=== PATIENT | female | born 1940 | race Caucasian/White ===

== ENCOUNTER 2022-10-25 12:07 | Emergency (ER) | payer MEDICARE, SELFPAY ==
[2022-10-25 12:09] VITALS: BP 104/57; PULSE 98; RESP 14; TEMP 36.6; O2SAT 97
[2022-10-25 12:11] VITALS: BMI 25.8
--- NOTE | 2022-10-25 12:58 | EX.ED.DYSGE1 ---
HPI History of Present Illness Chief Complaint: Dizziness [facility] Medical History (Updated 10/25/22 @ 15:[address] Milton Castro, ) Hyperthyroidism Sleep apnea Allergy/AdvReac Type Severity Reaction Status Date / Time No Known Allergies Allergy Verified 10/25/22 12:08 Social History Smoking Status: Never smoker EXAM Physical Exam Const Vital Signs: 10/25/22 12:09 10/25/22 12:11 10/25/22 13:05 Temperature 98 F Temperature Source Temporal Pulse Rate 98 Respiratory Rate 14 Respiratory Effort Normal Non-Labored Respiratory Pattern Normal Blood Pressure 104/57 L Blood Pressure Mean 72 Pulse Ox 97 95 Oxygen Delivery Method Room Air Room Air 10/25/22 14:08 Temperature Temperature Source Pulse Rate 87 Respiratory Rate 15 Respiratory Effort Respiratory Pattern Blood Pressure 110/74 Blood Pressure Mean 86 Pulse Ox 97 Oxygen Delivery Method Room Air MDM MDM MDM Narrative Medical decision making narrative: HISTORY OF PRESENT ILLNESS: 82-year-old female here with dizziness. She notes this occurred earlier today. Was worse with rising from a seated position. It is since resolved. Denies exacerbation with head movement. She has associated indigestion and nausea. Denies any chest pain, palpitations, shortness of breath, vomiting. Denies any abdominal pain. Denies any focal numbness or weakness. REVIEW OF SYSTEMS: Pertinent positives: Dizziness, nausea Pertinent negatives: Syncope, focal weakness PHYSICAL EXAM: Nursing triage notes reviewed, Vital signs reviewed Constitutional: please see mdm HENT: MMM Eyes: Pupils equal round and reactive to light, Extraocular muscles intact Neck: No stridor, no JVD, full neck ROM Lungs: Clear to auscultation, No wheezing or rales. No increased work of breathing, no conversational dyspnea, no accessory muscle use, no nasal flaring. No respiratory distress noted Heart: Regular rate and rhythm, No murmurs, No rubs and No gallops, 2+ distal pulses (radial, femoral, posterior tibial) in all extremities Abdomen: Soft, there is no tenderness, rigidity, rebound or guarding, no obvious peritoneal signs, no palpable pulsatile abdominal masses, no auscultated abdominal bruit : No CVAT Extremities: No edema Neuro: No alert and oriented x3, neuro exam at baseline, cranial nerves II through XII are intact. No pain with extraocular muscle movement. There is negative test of skew. Normal speech. 5 of 5 strength in upper and lower extremities in flexion extension. Intact sensation to light touch in upper and lower extremity dermatomes. No truncal or extremity ataxia. No dysdiadochokinesia. Normal gait. 2+ reflexes. No meningeal signs. Negative Babinski. NIH of 0 Skin: No rash or lesions noted MEDICAL DECISION MAKING: Chief Complaint: Dizziness, nausea External records reviewed: No recent ED visits or hospitalizations noted in the chart. Echocardiogram from 2021 shows ejection fraction 57 Factors affecting care: Reviewed clinic sync patient is a history of hypertension, polymyalgia, hypothyroidism, weakness, ROSIE. Social determinants of health: Elderly History obtained from others: The patient's Consults: none ALL IMAGES (IF OBTAINED) HAVE BEEN PERSONALLY REVIEWED AND INTERPRETED BY MYSELF. EKG with sinus bradycardia, left axis deviation, normal intervals, no STEMI MDM Narrative: [Patient was hemodynamically stable, afebrile, [id number]. No focal neurologic deficits. Low suspicion for posterior circulation CVA. I considered the following differential diagnosis: Posterior cervical CVA, anemia, arrhythmia, electrolyte normality, dehydration I obtained a broad lab and imaging work-up to further elucidate etiology the patient's complaints. Labs did not show evidence of significant anemia, electrolyte abnormalities, endorgan hypoperfusion, or myocardial ischemia. No evidence of pneumothorax, pneumonia or heart failure. Patient ambulated out significant ataxia or difficulty. Patient's etiology is unclear however there is no signs of any life or limb threatening today. I completed a structured, evidence-based clinical evaluation to screen for acute stroke and neurologic deficits in this patient. The patient has a normal detailed neurologic exam, which is highly sensitive for dangerous causes of dizziness, vertigo, or loss of balance. The evidence indicates that the patient is very low risk for an acute neurologic emergency and this is consistent with my clinical intuition. The risk of further workup or hospitalization is likely higher than the risk of the patient having a stroke or other dangerous neurologic condition. It is, therefore, in the patient?s best interest not to do additional emergent testing or to be hospitalized at this time. Shared Decision-Making I have discussed with the patient my clinical impression and the result of an evidence-based clinical evaluation to screen for stroke, as well as the risk of further testing and hospitalization. The evidence shows that the risk for stroke is less than 1%. Although the risk of stroke has not been completely eliminated, the risks of further testing or hospitalization likely exceed any potential benefit, and the patient agrees with not pursuing further emergent evaluation or hospitalization for stroke evaluation at this time. The patient and/or family, caregivers express understanding. The patient and/or family, caregivers agrees with the plan. Total critical care time today provided was at least 0 [] minutes. This excludes separately billable procedures. Critical care time (if documented) is secondary to the patient having high probability of clinically significant/life threatening deterioration in the patient's condition which required my urgent intervention. Lab Data Attestation: I reviewed the patient's lab results. Lab results narrative: CBC without leukocytosis, severe anemia, no thrombocytopenia. BMP with mild hyponatremia, no other significant electrolyte abnormalities, no anion gap to suggest endorgan hypoperfusion, no acute kidney injury Troponin is negative, no evidence of myocardial ischemia x2 Labs: Laboratory Results - last 24 hr 10/25/22 10/25/22 12:37 15:17 WBC 6.5 RBC 3.73 L Hgb 12.6 Hct 38.0 MCV 101.9 H MCH 33.8 H MCHC 33.2 RDW Std Deviation 45.0 H RDW Coeff of Kelly 12.0 Plt Count 303 MPV 9.7 Immature Gran % (Auto) 0.300 Neut % (Auto) 69.4 Lymph % (Auto) 17.0 L Walker % (Auto) 7.2 Eos % (Auto) 5.5 H Baso % (Auto) 0.6 Absolute Neuts (auto) 4.5 Absolute Lymphs (auto) 1.11 Nucleated RBC % 0 Sodium 133 L Potassium 4.2 Chloride 104 Carbon Dioxide 23.0 Anion Gap 6 BUN 17 Creatinine 0.90 Estim Creat Clear Calc 40.18 Est GFR (MDRD) Af Amer 76 Est GFR (MDRD) Non-Af 63 BUN/Creatinine Ratio 18.8 Glucose 139 H Calcium 9.0 Troponin I High Sens 6 7 Radiography Chest X-Ray - ED: Read by ED Physician Diagnostic Testing: Clinical Impression(s) from Imaging Studies Chest X-Ray 10/25/22 13:12 IMPRESSION: No acute abnormality is seen. Electronically Signed: Gabriel Merino MD at 13:35 EDT , I have personally reviewed the patient's chest x-ray. Chest x-ray is unremarkable for pulmonary edema, pneumothorax, pneumonia or focal cardiopulmonary abnormality. Discharge Plan Triage Chief Complaint: Dizziness ED Provider: Milton Castro Dx/Rx/DC Orders Clinical Impression: Dizziness Instructions: ED Dizziness, Uncertain Cause Primary Care Provider: Care Physician,No Primary Referrals: Care Physician,No Primary [Primary Care Provider] - Activity Restrictions/Additional Instructions: Thank you for trusting us with your care today! Please take Tylenol (2 pills, 650 mg), ibuprofen (2 pills, 400 mg) every 6 hours as needed for pain and fever control. Please take plenty of fluids including Pedialyte, body armor or Gatorade. Please return to the emergency department if your symptoms change or worsen. Specifically develop slurred speech, loss of vision, facial drooping, incoordination or difficulty ambulating. Please follow with your primary care physician for further outpatient evaluation and management. Disposition Disposition: Home, Self Care
--- NOTE | 2022-10-25 13:00 | EKG12_ITS ---
Test Reason : nausea Blood Pressure : / mmHG Vent. Rate : 057 BPM Atrial Rate : 057 BPM P-R Int : 164 ms QRS Dur : 104 ms QT Int : 418 ms P-R-T Axes : 067 -49 020 degrees QTc Int : 406 ms Sinus bradycardia Incomplete right bundle branch block Left anterior fascicular block Moderate voltage criteria for LVH, may be normal variant ( R in aVL , Ashkan product ) Septal infarct , age undetermined Abnormal ECG Confirmed by TESSA LEONE, DELANEY ([id number]), web content editor SONNY HARRISON ([id number]) on 10/26/2022 10:03:45 AM Referred By: Joseph Confirmed By:DELANEY ZARATE MD
[2022-10-25 13:05] VITALS: O2SAT 95
[2022-10-25] MEDS: 0.9% Normal Saline 1,000 ML 1000 ML IV (13:08)
[2022-10-25 13:09] LABS: Absolute Lymphocyte Count 1.11 X10^3/uL (0.83-4.51); Absolute Neutrophil Count 4.5 X10^3/uL (2.0-7.7); Basophil# 0.04 X10^3/uL; Basophil% 0.6 % (0-1); Eosinophil# 0.36 X10^3/uL; Eosinophils% 5.5 % (0-5); Hemoglobin 12.6 g/dL (12.0-15.0); Lymphocyte # 1.11 X10^3/ul (0.83-4.51); Mean Corp Hgb Conc 33.2 g/dL (32-36); Mean Corpuscular Hgb 33.8 pg (27.0-32.0); Mean Corpuscular Volume 101.9 fL (81-99); Mean Platelet Vol. 9.7 fl (6.2-12.0); Monocyte# 0.47 X10^3/uL; Monocyte% 7.2 % (0-10); NRBC Flagged by Analyzer 0 % (0-5); Neutrophil # 4.53 X10^3/uL (2.7-7.7); Neutrophil % 69.4 % (47-70); Platelet Count 303 K/mm3 (150-450); Red Blood Count 3.73 M/mm3 (4.2-5.4); White Blood Count 6.5 K/mm3 (4.4-11.0)
--- NOTE | 2022-10-25 13:12 | RAD_ITS ---
STUDY: X-RAY CHEST REASON FOR EXAM: Female, 82 years old. Chest pain and dizziness. TECHNIQUE: Single AP portable view of the chest. COMPARISON: None. FINDINGS: The lungs are clear and expanded. There is no demonstrated pleural abnormality. Normal size heart. Normal mediastinum and richard. Normal visualized pulmonary arteries. There is atherosclerotic calcification of the aortic arch with tortuosity. There are degenerative changes of the visualized thoracic spine. Normal visualized ribs, clavicles, and shoulders. There is no demonstrated abnormality of the visualized soft tissue structures of the upper abdomen. RAD/Chest 1 View (Portable) IMPRESSION: No acute abnormality is seen. Electronically Signed: Gabriel Merino MD at 13:35 EDT ,
[2022-10-25 13:32] LABS: Anion Gap 6 (5-15); BUN 17 mg/dL (7-18); BUN/Creat Ratio 18.8 RATIO (10-20); Chloride 104 mmol/L (98-107); EST Glomerular Filtration Rate 63 mL/min (>60); Est Glom Filt Rate - Afr Amer 76 mL/min (>60); Estimated Creatinine Clearance 40.18 ml/min; Glucose 139 mg/dL (74-106); Potassium 4.2 mmol/L (3.5-5.1); Sodium Level 133 mmol/L (136-145); Troponin-I HS (w/2H Reflex) 6 pg/mL (3.0-54.0)
[2022-10-25 14:08] VITALS: BP 110/74; PULSE 87; RESP 15; O2SAT 97
[2022-10-25 15:05] LABS: Reflex Troponin-HS? (from REC) Y
[2022-10-25 15:45] LABS: Troponin-I HS 7 pg/mL (3.0-54.0)
[2022-10-25 16:01] VITALS: BP 110/81; PULSE 71; RESP 14; O2SAT 98
== END 2022-10-25 16:05 | disposition home or self-care (01) ==
PROVIDERS: Emergency Provider Emergency Medicine; Visit Provider Emergency Medicine
DX: R42 Dizziness and giddiness (principal); G47.30 Sleep apnea, unspecified
CPT/HCPCS: 71045; 80048; 84484; 85025; 93005; 99284; A4216